=== PATIENT | male | born 1940 | race Caucasian/White ===

== ENCOUNTER 2018-05-06 17:57 | Inpatient (IN) | payer MEDICARE, MEDICAID ==
[~2018-05-06] VITALS: Ht 170.2 cm; Wt 84.1 kg
[~2018-05-06 17:57] MED LIST: ASPI-1265 PO; ATE25T PO; BACL20TA84 PO; CALC-793 PO; CARB-17 PO; DIGO250T PO; FOLI0.4T2 PO; GLIP-126 PO; HCTZ25T PO; LISI-600 PO; OMEP-84 PO; TEST100V5 IM; VIT1TABL83 PO; VITA400T10 PO; VITC500T PO
[2018-05-06] MEDS ORDERED: SODIUM CHLORIDE IV ONE (18:37)
[2018-05-06] MEDS ORDERED: [UNRECOGNIZED DRUG - OTHER] IV ONE (18:37)
[2018-05-06] MEDS ORDERED: LIDOcaine 1% w/EPI 1:100,000 30ml vial (MDV) ONE (18:37)
[2018-05-06] MEDS ORDERED: CEFEPIME IV ONE (18:37)
[2018-05-06 19:54] LABS: BASOPHILS % (AUTO) 0.1 % (0-1); EOSINOPHILS # (AUTO) 0.1 X10'3 (0-0.9); EOSINOPHILS % (AUTO) 0.3 % (0-6); HEMATOCRIT 36.1 % (42.0-52.0); HEMOGLOBIN 12.3 g/dl (14.0-17.9); LYMPHOCYTES # (AUTO) 1.7 X10'3 (1.1-4.8); LYMPHOCYTES % (AUTO) 8.9 % (21-51); MEAN CORPUSCULAR HEMOGLOBIN 31.5 PG (27.0-31.0); MEAN CORPUSCULAR HGB CONC 34.1 % (33.0-36.5); MEAN CORPUSCULAR VOLUME 92.5 FL (78-98); MEAN PLATELET VOLUME 8.3 FL (7.4-10.4); MONOCYTES # (AUTO) 1.4 X10'3 (0-0.9); MONOCYTES % (AUTO) 7.4 % (2-12); NEUTROPHILS % (AUTO) 83.3 % (42-75); PLATELET COUNT 217 X10'3 (140-440); RED CELL DISTRIBUTION WIDTH 13.5 % (11.5-14.5); WHITE BLOOD COUNT 19.2 X10'3 (4.5-11.0)
[2018-05-06 20:16] LABS: ALANINE AMINOTRANSFERASE 36 U/L (12-78); ALBUMIN 3.1 G/DL (3.4-5.0); ALBUMIN/GLOBULIN RATIO 0.8 (1.1-1.5); ALKALINE PHOSPHATASE 77 IU/L (46-116); ANION GAP 6 (8-16); ASPARTATE AMINO TRANSFERASE 18 U/L (10-37); BILIRUBIN,TOTAL 0.7 MG/DL (0.1-1.0); BLOOD UREA NITROGEN 11 MG/DL (7-18); BUN/CREATININE RATIO 13.8 (5.4-32.0); CALCIUM 8.9 MG/DL (8.5-10.1); CHLORIDE 102 MMOL/L (99-107); GLUCOSE 171 MG/DL (70-104); POTASSIUM 4.1 MMOL/L (3.5-5.1); SODIUM 138 MMOL/L (135-145); TOTAL CARBON DIOXIDE 29.7 MMOL/L (24-32); TOTAL PROTEIN 7.2 G/DL (6.4-8.2); eGFR > 90 ML/MIN
[2018-05-06] MEDS ORDERED: ondansetron/PF 4mg/2ml inj IV ONE (20:55)
[2018-05-06] MEDS ORDERED: morphine 4 MG/ML inj SYRINge IV PRN (20:55)
[2018-05-06] MEDS ORDERED: CARB-87 PO (21:50)
[2018-05-06] MEDS ORDERED: FAMO40TA7 PO (21:50)
[2018-05-07] MEDS: normal saline 1000ml 1,000 ML IV SCH ×2 (00:41→17:15)
[2018-05-07] MEDS ORDERED: mag hydrox/Alum hydrox/simeth 30ml oral suspension PO PRN (00:45)
[2018-05-07] MEDS ORDERED: ondansetron/PF 4mg/2ml inj IV PRN (00:45)
[2018-05-07] MEDS ORDERED: magnesium hydroxide 30ml (MOM) UD suspension PO PRN (00:45)
[2018-05-07] MEDS ORDERED: acetaminophen 325mg tablet PO PRN (00:45)
[2018-05-07] MEDS ORDERED: cefazolin/dext.iso 2gm/50ml 50 ML IV SCH (01:18)
[2018-05-07 03:30] VITALS: BP 165/78
[2018-05-07] MEDS ORDERED: CEFEPIME IV ONE (03:58)
[2018-05-07] MEDS ORDERED: SODIUM CHLORIDE IV ONE (03:58)
[2018-05-07] MEDS ORDERED: Cefazolin 2GM/100ML NS IVPB 100 ML IV SCH (04:43)
[2018-05-07 08:30] VITALS: BP 150/62
[2018-05-07] MEDS: lisinopril 20mg tablet PO SCH ×3 (09:30→23:11)
[2018-05-07] MEDS: aspirin 81mg tab.chew PO SCH (09:30)
[2018-05-07] MEDS: calcium carbonate/vitamin D3 tablet PO SCH (09:30)
[2018-05-07] MEDS: ascorbic acid 500mg tablet PO SCH ×3 (09:30→21:00)
[2018-05-07] MEDS: digoxin 250mcg (0.25mg) tablet PO SCH (09:31)
[2018-05-07] MEDS: atenolol 25mg tablet PO SCH ×3 (09:32→23:11)
[2018-05-07] MEDS: carbidoba-levodopa 25-100mg tablet PO SCH ×2 (09:33→16:26)
[2018-05-07] MEDS: heparin, porcine 5000 units/ml vial SQ SCH ×2 (09:34→20:00)
[2018-05-07 11:39] VITALS: BP 139/65
[2018-05-07] MEDS: vitamin E 400 unit capsule PO SCH (14:57)
[2018-05-07] MEDS: ceFAZolin 2gm in dextrose, iso 100 ML IV SCH ×2 (16:28→23:58)
[2018-05-07 18:00] VITALS: BP 140/76
[2018-05-07 19:52] LABS: HEMOGLOBIN A1C 6.8 % (4.5-6.2)
[2018-05-07] MEDS: lactobacillus rhamnosus 10,000 MMU CELLS/CAPSULE PO SCH (20:00)
[2018-05-07] MEDS: famotidine 20mg tablet PO SCH (21:00)
[2018-05-08] VITALS: BP 179/76
[2018-05-08 04:56] LABS: BASOPHILS % (AUTO) 0.4 % (0-1); EOSINOPHILS # (AUTO) 0.2 X10'3 (0-0.9); EOSINOPHILS % (AUTO) 1.8 % (0-6); HEMATOCRIT 35.2 % (42.0-52.0); HEMOGLOBIN 11.9 g/dl (14.0-17.9); LYMPHOCYTES # (AUTO) 1.9 X10'3 (1.1-4.8); LYMPHOCYTES % (AUTO) 14.7 % (21-51); MEAN CORPUSCULAR HEMOGLOBIN 31.3 PG (27.0-31.0); MEAN CORPUSCULAR HGB CONC 33.7 % (33.0-36.5); MEAN CORPUSCULAR VOLUME 93.1 FL (78-98); MEAN PLATELET VOLUME 8.7 FL (7.4-10.4); MONOCYTES # (AUTO) 1.1 X10'3 (0-0.9); MONOCYTES % (AUTO) 8.6 % (2-12); NEUTROPHILS # (AUTO) 9.7 X10'3 (1.8-7.7); NEUTROPHILS % (AUTO) 74.5 % (42-75); PLATELET COUNT 237 X10'3 (140-440); RED BLOOD COUNT 3.79 X10'6 (4.70-6.10); RED CELL DISTRIBUTION WIDTH 13.6 % (11.5-14.5)
[2018-05-08 05:23] LABS: ALANINE AMINOTRANSFERASE 24 U/L (12-78); ALBUMIN 2.8 G/DL (3.4-5.0); ALBUMIN/GLOBULIN RATIO 0.7 (1.1-1.5); ALKALINE PHOSPHATASE 70 IU/L (46-116); ANION GAP 6 (8-16); ASPARTATE AMINO TRANSFERASE 17 U/L (10-37); BILIRUBIN,TOTAL 0.4 MG/DL (0.1-1.0); BLOOD UREA NITROGEN 11 MG/DL (7-18); BUN/CREATININE RATIO 14.1 (5.4-32.0); CALCIUM 8.3 MG/DL (8.5-10.1); CHLORIDE 105 MMOL/L (99-107); CREATININE 0.78 MG/DL (0.60-1.10); GLUCOSE 179 MG/DL (70-104); POTASSIUM 3.8 MMOL/L (3.5-5.1); SODIUM 141 MMOL/L (135-145); TOTAL CARBON DIOXIDE 29.6 MMOL/L (24-32); TOTAL PROTEIN 6.8 G/DL (6.4-8.2); eGFR > 90 ML/MIN
[2018-05-08 07:00] VITALS: BP 147/63
[2018-05-08] MEDS: ceFAZolin 2gm in dextrose, iso 100 ML IV SCH ×2 (09:52→17:16)
[2018-05-08] MEDS: lactobacillus rhamnosus 10,000 MMU CELLS/CAPSULE PO SCH ×2 (10:08→20:12)
[2018-05-08] MEDS: digoxin 250mcg (0.25mg) tablet PO SCH (10:08)
[2018-05-08] MEDS: atenolol 25mg tablet PO SCH ×2 (10:09→20:10)
[2018-05-08] MEDS: ascorbic acid 500mg tablet PO SCH ×3 (10:09→20:11)
[2018-05-08] MEDS: vitamin E 400 unit capsule PO SCH (10:09)
[2018-05-08] MEDS: carbidoba-levodopa 25-100mg tablet PO SCH ×3 (10:09→17:16)
[2018-05-08] MEDS: calcium carbonate/vitamin D3 tablet PO SCH (10:09)
[2018-05-08] MEDS: lisinopril 20mg tablet PO SCH ×2 (10:09→20:10)
[2018-05-08 11:00] VITALS: BP 161/75
[2018-05-08] MEDS: aspirin 81mg tab.chew PO SCH (14:44)
[2018-05-08] MEDS: heparin, porcine 5000 units/ml vial SQ SCH ×2 (14:45→20:12)
[2018-05-08] MEDS: vancomycin inj 1,250 MG in normal saline 250ml IV soln 250 ML IV SCH (17:13)
[2018-05-08 18:00] VITALS: BP 146/58
[2018-05-08] MEDS: famotidine 20mg tablet PO SCH (20:11)
[2018-05-08] MEDS: normal saline 1000ml 1,000 ML IV SCH (21:00)
[2018-05-09] VITALS: BP 156/66
[2018-05-09] MEDS: ceFAZolin 2gm in dextrose, iso 100 ML IV SCH ×4 (00:12→23:28)
[2018-05-09] MEDS: vancomycin inj 1,250 MG in normal saline 250ml IV soln 250 ML IV SCH ×2 (03:10→15:16)
[2018-05-09 06:14] LABS: ALANINE AMINOTRANSFERASE 23 U/L (12-78); ALBUMIN 2.7 G/DL (3.4-5.0); ALBUMIN/GLOBULIN RATIO 0.7 (1.1-1.5); ALKALINE PHOSPHATASE 70 IU/L (46-116); ANION GAP 7 (8-16); ASPARTATE AMINO TRANSFERASE 20 U/L (10-37); BILIRUBIN,TOTAL 0.4 MG/DL (0.1-1.0); BLOOD UREA NITROGEN 13 MG/DL (7-18); BUN/CREATININE RATIO 17.8 (5.4-32.0); CALCIUM 8.6 MG/DL (8.5-10.1); CHLORIDE 106 MMOL/L (99-107); CREATININE 0.73 MG/DL (0.60-1.10); GLUCOSE 163 MG/DL (70-104); MAGNESIUM 1.8 MG/DL (1.5-2.4); PHOSPHORUS 2.8 MG/DL (2.3-4.5); POTASSIUM 3.8 MMOL/L (3.5-5.1); SODIUM 141 MMOL/L (135-145); TOTAL CARBON DIOXIDE 28.5 MMOL/L (24-32); TOTAL PROTEIN 6.5 G/DL (6.4-8.2); eGFR > 90 ML/MIN
[2018-05-09 06:29] LABS: BASOPHILS # (AUTO) 0.1 X10'3 (0-0.2); BASOPHILS % (AUTO) 0.7 % (0-1); EOSINOPHILS # (AUTO) 0.4 X10'3 (0-0.9); EOSINOPHILS % (AUTO) 3.9 % (0-6); HEMATOCRIT 34.2 % (42.0-52.0); HEMOGLOBIN 11.9 g/dl (14.0-17.9); LYMPHOCYTES # (AUTO) 2.4 X10'3 (1.1-4.8); LYMPHOCYTES % (AUTO) 22.8 % (21-51); MEAN CORPUSCULAR HEMOGLOBIN 32.1 PG (27.0-31.0); MEAN CORPUSCULAR HGB CONC 34.7 % (33.0-36.5); MEAN CORPUSCULAR VOLUME 92.7 FL (78-98); MEAN PLATELET VOLUME 9.2 FL (7.4-10.4); MONOCYTES # (AUTO) 0.8 X10'3 (0-0.9); MONOCYTES % (AUTO) 7.7 % (2-12); NEUTROPHILS % (AUTO) 64.9 % (42-75); PLATELET COUNT 230 X10'3 (140-440); RED BLOOD COUNT 3.69 X10'6 (4.70-6.10); RED CELL DISTRIBUTION WIDTH 12.5 % (11.5-14.5); WHITE BLOOD COUNT 10.7 X10'3 (4.5-11.0)
[2018-05-09 07:00] VITALS: BP 162/67
[2018-05-09] MEDS: carbidoba-levodopa 25-100mg tablet PO SCH ×4 (09:05→23:26)
[2018-05-09] MEDS: heparin, porcine 5000 units/ml vial SQ SCH ×2 (09:05→20:01)
[2018-05-09] MEDS: aspirin 81mg tab.chew PO SCH (09:05)
[2018-05-09] MEDS: atenolol 25mg tablet PO SCH ×2 (09:05→20:00)
[2018-05-09] MEDS: lisinopril 20mg tablet PO SCH ×2 (09:06→20:00)
[2018-05-09] MEDS: calcium carbonate/vitamin D3 tablet PO SCH (09:06)
[2018-05-09] MEDS: vitamin E 400 unit capsule PO SCH (09:07)
[2018-05-09] MEDS: digoxin 250mcg (0.25mg) tablet PO SCH (09:07)
[2018-05-09] MEDS: lactobacillus rhamnosus 10,000 MMU CELLS/CAPSULE PO SCH ×2 (09:07→19:59)
[2018-05-09] MEDS: ascorbic acid 500mg tablet PO SCH ×3 (09:07→20:00)
[2018-05-09 11:00] VITALS: BP 157/69
[2018-05-09] MEDS: normal saline 1000ml 1,000 ML IV SCH ×2 (12:41→20:01)
[2018-05-09 18:00] VITALS: BP 144/59
[2018-05-09] MEDS: famotidine 20mg tablet PO SCH (20:00)
[2018-05-10] VITALS: BP 139/64
[2018-05-10] MEDS ORDERED: VANCOMYCIN LEVEL IV ONE (02:30)
[2018-05-10 02:53] LABS: BASOPHILS # (AUTO) 0.1 X10'3 (0-0.2); BASOPHILS % (AUTO) 0.7 % (0-1); EOSINOPHILS # (AUTO) 0.5 X10'3 (0-0.9); EOSINOPHILS % (AUTO) 4.3 % (0-6); HEMATOCRIT 34.6 % (42.0-52.0); LYMPHOCYTES # (AUTO) 2.4 X10'3 (1.1-4.8); MEAN CORPUSCULAR HEMOGLOBIN 32.1 PG (27.0-31.0); MEAN CORPUSCULAR HGB CONC 34.6 % (33.0-36.5); MEAN CORPUSCULAR VOLUME 92.5 FL (78-98); MEAN PLATELET VOLUME 8.3 FL (7.4-10.4); MONOCYTES # (AUTO) 0.8 X10'3 (0-0.9); MONOCYTES % (AUTO) 7.2 % (2-12); NEUTROPHILS # (AUTO) 7.7 X10'3 (1.8-7.7); NEUTROPHILS % (AUTO) 66.8 % (42-75); PLATELET COUNT 244 X10'3 (140-440); RED BLOOD COUNT 3.74 X10'6 (4.70-6.10); RED CELL DISTRIBUTION WIDTH 13.2 % (11.5-14.5); WHITE BLOOD COUNT 11.5 X10'3 (4.5-11.0)
[2018-05-10] MEDS: vancomycin inj 1,250 MG in normal saline 250ml IV soln 250 ML IV SCH (02:53)
[2018-05-10 03:07] LABS: ALANINE AMINOTRANSFERASE 20 U/L (12-78); ALBUMIN 2.7 G/DL (3.4-5.0); ALBUMIN/GLOBULIN RATIO 0.7 (1.1-1.5); ALKALINE PHOSPHATASE 73 IU/L (46-116); ANION GAP 3 (8-16); ASPARTATE AMINO TRANSFERASE 19 U/L (10-37); BILIRUBIN,TOTAL 0.3 MG/DL (0.1-1.0); BLOOD UREA NITROGEN 12 MG/DL (7-18); BUN/CREATININE RATIO 15.2 (5.4-32.0); CALCIUM 8.8 MG/DL (8.5-10.1); CHLORIDE 106 MMOL/L (99-107); CREATININE 0.79 MG/DL (0.60-1.10); GLUCOSE 171 MG/DL (70-104); MAGNESIUM 1.9 MG/DL (1.5-2.4); PHOSPHORUS 2.6 MG/DL (2.3-4.5); SODIUM 140 MMOL/L (135-145); TOTAL CARBON DIOXIDE 30.9 MMOL/L (24-32); TOTAL PROTEIN 6.6 G/DL (6.4-8.2); VANCOMYCIN,TROUGH 13.6 UG/ML (6.0-14.0); eGFR > 90 ML/MIN
[2018-05-10] MEDS: calcium carbonate/vitamin D3 tablet PO SCH (07:44)
[2018-05-10] MEDS: atenolol 25mg tablet PO SCH ×2 (07:44→21:30)
[2018-05-10] MEDS: lisinopril 20mg tablet PO SCH ×2 (07:44→21:30)
[2018-05-10] MEDS: vitamin E 400 unit capsule PO SCH (07:44)
[2018-05-10] MEDS: lactobacillus rhamnosus 10,000 MMU CELLS/CAPSULE PO SCH ×2 (07:44→21:30)
[2018-05-10] MEDS: carbidoba-levodopa 25-100mg tablet PO SCH ×3 (07:44→21:30)
[2018-05-10] MEDS: ascorbic acid 500mg tablet PO SCH ×3 (07:44→21:29)
[2018-05-10] MEDS: aspirin 81mg tab.chew PO SCH (07:45)
[2018-05-10] MEDS: digoxin 250mcg (0.25mg) tablet PO SCH (07:45)
[2018-05-10] MEDS: heparin, porcine 5000 units/ml vial SQ SCH ×2 (07:46→21:31)
[2018-05-10] MEDS: ceFAZolin 2gm in dextrose, iso 100 ML IV SCH ×2 (07:50→15:49)
[2018-05-10 07:55] VITALS: BP 145/64
[2018-05-10] MEDS: normal saline 1000ml 1,000 ML IV SCH (17:56)
[2018-05-10 20:00] VITALS: BP 122/62
[2018-05-10] MEDS: famotidine 20mg tablet PO SCH (21:29)
[2018-05-11] VITALS: BP 154/87
[2018-05-11] MEDS: ceFAZolin 2gm in dextrose, iso 100 ML IV SCH ×2 (00:38→08:09)
[2018-05-11 06:41] LABS: BASOPHILS # (AUTO) 0.1 X10'3 (0-0.2); BASOPHILS % (AUTO) 0.7 % (0-1); EOSINOPHILS # (AUTO) 0.4 X10'3 (0-0.9); EOSINOPHILS % (AUTO) 3.8 % (0-6); HEMATOCRIT 35.8 % (42.0-52.0); HEMOGLOBIN 11.9 g/dl (14.0-17.9); LYMPHOCYTES # (AUTO) 2.1 X10'3 (1.1-4.8); LYMPHOCYTES % (AUTO) 21.6 % (21-51); MEAN CORPUSCULAR HEMOGLOBIN 31.3 PG (27.0-31.0); MEAN CORPUSCULAR HGB CONC 33.3 % (33.0-36.5); MEAN CORPUSCULAR VOLUME 93.8 FL (78-98); MEAN PLATELET VOLUME 8.5 FL (7.4-10.4); MONOCYTES # (AUTO) 0.8 X10'3 (0-0.9); MONOCYTES % (AUTO) 8.4 % (2-12); NEUTROPHILS # (AUTO) 6.5 X10'3 (1.8-7.7); NEUTROPHILS % (AUTO) 65.5 % (42-75); PLATELET COUNT 258 X10'3 (140-440); RED BLOOD COUNT 3.82 X10'6 (4.70-6.10); RED CELL DISTRIBUTION WIDTH 13.3 % (11.5-14.5); WHITE BLOOD COUNT 9.9 X10'3 (4.5-11.0)
[2018-05-11 07:00] VITALS: BP 169/59
[2018-05-11 07:00] LABS: ALANINE AMINOTRANSFERASE 17 U/L (12-78); ALBUMIN 2.9 G/DL (3.4-5.0); ALBUMIN/GLOBULIN RATIO 0.8 (1.1-1.5); ALKALINE PHOSPHATASE 69 IU/L (46-116); ANION GAP 7 (8-16); ASPARTATE AMINO TRANSFERASE 27 U/L (10-37); BILIRUBIN,TOTAL 0.3 MG/DL (0.1-1.0); BLOOD UREA NITROGEN 9 MG/DL (7-18); BUN/CREATININE RATIO 13.2 (5.4-32.0); CALCIUM 8.8 MG/DL (8.5-10.1); CHLORIDE 106 MMOL/L (99-107); CREATININE 0.68 MG/DL (0.60-1.10); GLUCOSE 153 MG/DL (70-104); MAGNESIUM 1.9 MG/DL (1.5-2.4); PHOSPHORUS 2.8 MG/DL (2.3-4.5); POTASSIUM 3.9 MMOL/L (3.5-5.1); SODIUM 143 MMOL/L (135-145); TOTAL CARBON DIOXIDE 30.1 MMOL/L (24-32); TOTAL PROTEIN 6.7 G/DL (6.4-8.2); eGFR > 90 ML/MIN
[2018-05-11] MEDS: vitamin E 400 unit capsule PO SCH (07:54)
[2018-05-11] MEDS: ascorbic acid 500mg tablet PO SCH ×2 (07:54→14:42)
[2018-05-11] MEDS: carbidoba-levodopa 25-100mg tablet PO SCH (07:54)
[2018-05-11] MEDS: lactobacillus rhamnosus 10,000 MMU CELLS/CAPSULE PO SCH (07:54)
[2018-05-11] MEDS: digoxin 250mcg (0.25mg) tablet PO SCH (07:55)
[2018-05-11] MEDS: aspirin 81mg tab.chew PO SCH (07:55)
[2018-05-11] MEDS: calcium carbonate/vitamin D3 tablet PO SCH (07:55)
[2018-05-11] MEDS: lisinopril 20mg tablet PO SCH (07:56)
[2018-05-11] MEDS: atenolol 25mg tablet PO SCH (07:57)
[2018-05-11] MEDS: heparin, porcine 5000 units/ml vial SQ SCH (08:09)
[2018-05-12] MEDS ORDERED: VANCOMYCIN LEVEL IV ONE (02:30)
== END 2018-05-11 14:49 | DRG 603 ==
LOC: ER 17:58 → ED HOLD 05-07 00:41 → SUR 3N 05-07 03:23
PROVIDERS: ADMIT Internal Medicine; ATTEND Family Medicine
DX: L03.317 Cellulitis of buttock (principal); G82.20 Paraplegia, unspecified; L02.31 Cutaneous abscess of buttock; E11.9 Type 2 diabetes mellitus without complications; G14 Postpolio syndrome; G20 Parkinson's disease; I10 Essential (primary) hypertension; B95.62 Methicillin resistant Staphylococcus aureus infection as the cause of diseases classified elsewhere; I48.91 Unspecified atrial fibrillation; K57.30 Diverticulosis of large intestine without perforation or abscess without bleeding; N20.0 Calculus of kidney; Z66 Do not resuscitate; Z74.01 Bed confinement status; Z88.1 Allergy status to other antibiotic agents; Z88.8 Allergy status to other drugs, medicaments and biological substances; Z79.82 Long term (current) use of aspirin; Z79.899 Other long term (current) drug therapy; Z87.891 Personal history of nicotine dependence
CPT/HCPCS: 36415; 72192; 74176; 80053; 80202; 82948; 83036; 83605; 83735; 84100; 85025; 87040; 87070; 87077; 87186; 97110; 97161; 97530; 99285; A4357; A6212; A6213; J0690; J0692; J1644; J2405; J3370; J3490; J7030